=== PATIENT | female | born 1980 | race Caucasian/White ===

== ENCOUNTER 2017-12-31 15:51 | Emergency (ER) | payer SELFPAY ==
[~2017-12-31] VITALS: Ht 170.2 cm; Wt 83.6 kg
[2017-12-31 15:53] VITALS: BP 126/75; TEMP 98.1
[2017-12-31] MEDS ORDERED: MOTRIN 200200 MG/TAB PO (15:58)
[2017-12-31] MEDS ORDERED: ATARAX50 MG PO (15:59)
[2017-12-31] MEDS ORDERED: PEN-VEE K500 MG PO (16:18)
[2017-12-31] MEDS ORDERED: NORCO 325 MG-51 TAB PO (16:18)
[2017-12-31 16:26] VITALS: PULSE 85
== END 2017-12-31 16:26 | disposition home or self-care (01) ==
LOC: COL.ER 15:51
DX: K04.7 Periapical abscess without sinus (principal); F41.9 Anxiety disorder, unspecified; F17.210 Nicotine dependence, cigarettes, uncomplicated